=== PATIENT | male | born 1940 | race Hispanic/Latino ===

== ENCOUNTER 2017-12-17 09:54 | Outpatient (CLI) | payer MEDICARE ==
[2017-12-17 11:01] LABS: Albumin 4.4 g/dL (3.9-5); Calcium 9.5 mg/dL (8.4-10.2)
[2017-12-17 11:25] LABS: Creatinine,Urine 138.4 mg/dL (0.1-20.0); Protein/Creatinine Ratio,Urine 0.82
--- NOTE | 2017-12-17 14:15 | Ultrasound Report ---
ULTRASOUND RENAL BILATERAL HISTORY: Abnormal kidney function. TECHNIQUE: transabdominal ultrasound with color Doppler interrogation. FINDINGS: Scans of the kidneys show normal renal contours. There is normal central calyceal clustering and good preservation of the cortical thickness. There is no evidence of mass or hydronephrosis. The bladder is empty. IMPRESSION: Unremarkable renal ultrasound.
[2017-12-19 17:59] LABS: Myeloperoxidase Antibody <1.0 AI (<1.0)
[2017-12-20 22:56] LABS: Albumin 3.9 g/dL (3.8-4.8); Gamma Globulin 0.6 g/dL (0.8-1.7)
== END 2017-12-17 09:55 | disposition home or self-care (01) ==
LOC: US 09:54 → EDBD 09:54 → US 09:55
PROVIDERS: ATTEND Internal Medicine Nephrology
DX: I12.9 Hypertensive chronic kidney disease with stage 1 through stage 4 chronic kidney disease, or unspecified chronic kidney disease (principal); N18.9 Chronic kidney disease, unspecified; E11.22 Type 2 diabetes mellitus with diabetic chronic kidney disease; E87.5 Hyperkalemia; N40.0 Benign prostatic hyperplasia without lower urinary tract symptoms; R94.4 Abnormal results of kidney function studies; F17.200 Nicotine dependence, unspecified, uncomplicated
CPT/HCPCS: 36415; 76770; 80048; 82040; 82570; 84100; 84156; 84165; 86021; 86225

== ENCOUNTER 2017-12-28 10:58 | Outpatient (CLI) | payer MEDICARE ==
[2017-12-28 11:31] LABS: Albumin 4.1 g/dL (3.9-5); Calcium 9.4 mg/dL (8.4-10.2)
== END 2017-12-28 10:59 | disposition home or self-care (01) ==
LOC: LAB 10:58
PROVIDERS: ATTEND Internal Medicine Nephrology
DX: Z01.818 Encounter for other preprocedural examination (principal); I12.9 Hypertensive chronic kidney disease with stage 1 through stage 4 chronic kidney disease, or unspecified chronic kidney disease; N18.9 Chronic kidney disease, unspecified; E11.22 Type 2 diabetes mellitus with diabetic chronic kidney disease; E87.5 Hyperkalemia; N40.0 Benign prostatic hyperplasia without lower urinary tract symptoms; R94.4 Abnormal results of kidney function studies
CPT/HCPCS: 36415; 80048; 82040; 84100

== ENCOUNTER 2018-01-23 13:25 | Outpatient (CLI) | payer MEDICARE ==
[2018-01-23 14:03] LABS: Albumin 4.5 g/dL (3.9-5); Calcium 9.6 mg/dL (8.4-10.2)
== END 2018-01-23 13:26 | disposition home or self-care (01) ==
LOC: LAB 13:25
PROVIDERS: ATTEND Internal Medicine Nephrology
DX: I12.9 Hypertensive chronic kidney disease with stage 1 through stage 4 chronic kidney disease, or unspecified chronic kidney disease (principal); N18.9 Chronic kidney disease, unspecified; E11.22 Type 2 diabetes mellitus with diabetic chronic kidney disease; N40.0 Benign prostatic hyperplasia without lower urinary tract symptoms; R94.4 Abnormal results of kidney function studies; F17.200 Nicotine dependence, unspecified, uncomplicated
CPT/HCPCS: 36415; 80048; 82040; 84100

== ENCOUNTER 2019-05-20 06:42 | Inpatient (IN) | payer MEDICARE ==
--- NOTE | 2019-05-20 07:01 | Emergency Department Report ---
ED Neuro Deficit HPI - General Chief Complaint: Neuro Symptoms/Deficit Stated Complaint: SLURRED SPEECH, FACIAL DROOP, ALTERED MENTAL Source: patient, family Mode of arrival: Ambulatory Limitations: No Limitations - History of Present Illness Initial Comments: [facility] Date of Service: 05/20/2019 06:51:02 Impression: Altered mental status Metrics: Last Known Well: 05/19/2019 20:00:00 Start Time: 05/20/2019 06:50:17 Arrival Time: 05/20/2019 06:42:00 Stamp Time: 05/20/2019 06:51:02 Time First Login Attempt: 05/20/2019 06:52:42 Video Start Time: 05/20/2019 06:52:42 Symptoms: slurred speech and right sided weakness NIHSS Start Assessment Time: 05/20/2019 06:58:56 Patient is not a candidate for tPA. Patient was not deemed candidate for tPA thrombolytics because of Last Well Known above 4.[address] head was not reviewed. ER physician not notified of the decision on thrombolytics management. Comments: Confusion with worsening right leg weakness which seems to be baseline. Recommend metabolic work up would consider stroke less likely in the differential. Our recommendations are outlined below. Recommendations: Initiate Aspirin 81 MG Daily Recommended Scan: MRI Head Without Contrast Lipid Panel to Be Obtained, if Not Done in the Last Three Months Therapies: Physical Therapy, Occupational Therapy, Speech Therapy Assessment When Applicable Dysphaghia Screen: Swallow Evaluation, Bedside DVT prophylaxis: SCDs, Pneumatic Compression Disposition: Follow up with Teleneurology Follow up Sign Out: Discussed with Emergency Department Provider History of Present Illness: Patient is a 78 years old Male who presents with symptoms of slurred speech and right sided weakness 78 yo M with history of stroke, CAD, and dm who is presenting with slurred speech and right sided weakness. Per family patient has been confused that last few days. He was stumbling and slurring speech this morning. His last normal was 20:00. Stroke alert called for Triage presentations Examination: 1A: Level of Consciousness - Alert; keenly responsive + 0 1B: Ask Month and Age - Both Questions Right + 0 1C: Blink Eyes & Squeeze Hands - Performs Both Tasks + 0 2: Test Horizontal Extraocular Movements - Normal + 0 3: Test Visual Jamison - No Visual Loss + 0 4: Test Facial Palsy (Use Grimace if Obtunded) - Normal symmetry + 0 5A: Test Left Arm Motor Drift - No Drift for 10 Seconds + 0 5B: Test Right Arm Motor Drift - No Drift for 10 Seconds + 0 6A: Test Left Leg Motor Drift - No Drift for 5 Seconds + 0 6B: Test Right Leg Motor Drift - Some Effort Against [place] + 2 7: Test Limb Ataxia (FNF/Heel-Mcgrath) - No Ataxia + 0 8: Test Sensation - Mild-Moderate Loss: Less Sharp/More Dull + 1 9: Test Language/Aphasia - Normal; No aphasia + 0 10: Test Dysarthria - Normal + 0 11: Test Extinction/Inattention - No abnormality + 0 NIHSS Score: 3 Patient was informed the Neurology Consult would happen via TeleHealth consult by way of interactive audio and video telecommunications and consented to receiving care in this manner. Due to the immediate potential for life-threatening deterioration due to underlying acute neurologic illness, I spent 35 minutes providing critical care. This time includes time for face to face visit via telemedicine, review of medical records, imaging studies and discussion of findings with providers, the patient and/or family. Dr Izabela Alaniz [facility] - Related Data Home Medications: Home Medications Medication Instructions Recorded Confirmed Last Taken Aspirin [Aspirin TAB] 325 mg PO QDAY 03/29/16 03/29/16 Unknown Clopidogrel Bisulfate [Plavix] 75 mg PO DAILY 03/29/16 03/29/16 Unknown Metoprolol [Lopressor] 25 mg PO BID 03/29/16 03/29/16 Unknown Rosuvastatin (Nf) [Crestor] 0 mg PO QHS 03/29/16 03/29/16 Unknown glipiZIDE [Glucotrol] 10 mg PO BID 03/29/16 03/29/16 Unknown metFORMIN [Glucophage] 1,000 mg PO BID 03/29/16 03/29/16 Unknown Allergies/Adverse Reactions: Allergies Allergy/AdvReac Type Severity Reaction Status Date / Time KAYLIE Inhibitors AdvReac Unknown Verified 03/29/16 19:28 ED Review of Systems ROS: Stated complaint: SLURRED SPEECH, FACIAL DROOP, ALTERED MENTAL Other details as noted in HPI ED Past Medical Hx - Past Medical History Additional medical history: BPH - Surgical History Hx Coronary Stent: Yes Hx Open Heart Surgery: Yes Additional Surgical History: PROSTATE GLAND SURGERY - Social History Smoking Status: Current Every Day Smoker (one pack per day) Substance Use Type: None - Medications Home Medications: Home Medications Medication Instructions Recorded Confirmed Last Taken Type Aspirin [Aspirin TAB] 325 mg PO QDAY 03/29/16 03/29/16 Unknown History Clopidogrel Bisulfate [Plavix] 75 mg PO DAILY 03/29/16 03/29/16 Unknown History Metoprolol [Lopressor] 25 mg PO BID 03/29/16 03/29/16 Unknown History Rosuvastatin (Nf) [Crestor] 0 mg PO QHS 03/29/16 03/29/16 Unknown History glipiZIDE [Glucotrol] 10 mg PO BID 03/29/16 03/29/16 Unknown History metFORMIN [Glucophage] 1,000 mg PO BID 03/29/16 03/29/16 Unknown History ED Neuro Physical Exam - General Limitations: No Limitations Suspected Stroke: No Critical care attestation.: If time is entered above; I have spent that time in minutes in the direct care of this critically ill patient, excluding procedure time. ED Disposition Clinical Impression: Altered mental status, unspecified Disposition: 09 OP ADMIT IP TO THIS HOSP Is pt being admited?: Yes Condition: Stable
[2019-05-20] MEDS ORDERED: REGLAN IV ONE (07:12)
[2019-05-20] MEDS ORDERED: BENADRYL IV ONE (07:12)
--- NOTE | 2019-05-20 07:12 | Emergency Department Report ---
ED General Adult HPI - General Chief complaint: Neuro Symptoms/Deficit Stated complaint: SLURRED SPEECH, FACIAL DROOP, ALTERED MENTAL Time Seen by Provider: 05/20/19 06:57 Source: patient, family, RN notes reviewed, old records reviewed Mode of arrival: Ambulatory Limitations: Altered Mental Status, Physical Limitation - History of Present Illness Initial comments: This is a 78-year-old gentleman. The patient is not known to this provider previously. The patient has a history of diabetes and hypertension and high cholesterol. He may also have a history of renal insufficiency, question TIA/stroke in the past, and chronic right-sided hip pain. The patient is brought to the hospital by his son, Mr. Bigg queen; [phone]. History mostly obtained from the patient's son. Apparently, the patient's son saw the patient at 6:00 this morning, and thought that he was altered and not acting right. His last known well time was 8:00 last night. Apparently, no new medications, and no other symptoms. Patient initially denies symptoms to this provider. Then he complains of a headache. He states the headache is frontal. He is not able to describe the quality of the nature of his headache, onset of headache, radiation of headache, exacerbating or relieving factors. However, he denies additional symptoms. The patient's son indicates no fevers, vomiting, loss of consciousness, change in medications. The patient has chronic right-sided hip pain, and chronic decreased range of motion in the right lower extremity. As per review of old medications, patient takes glipizide nursing team has been tasked with reconciling patient's medications. Patient altered and therefore not able to describe exacerbating or relieving factors, qualitative nature of his symptoms, radiation. As per family, there is no trauma. -: unknown Quality: other Consistency: other Improves with: other Worsens with: other Associated Symptoms: other - Related Data Home Medications Medication Instructions Recorded Confirmed Last Taken Aspirin [Aspirin TAB] 325 mg PO QDAY 03/29/16 03/29/16 Unknown Clopidogrel Bisulfate [Plavix] 75 mg PO DAILY 03/29/16 03/29/16 Unknown Metoprolol [Lopressor] 25 mg PO BID 03/29/16 03/29/16 Unknown Rosuvastatin (Nf) [Crestor] 0 mg PO QHS 03/29/16 03/29/16 Unknown glipiZIDE [Glucotrol] 10 mg PO BID 03/29/16 03/29/16 Unknown metFORMIN [Glucophage] 1,000 mg PO BID 03/29/16 03/29/16 Unknown Allergies Allergy/AdvReac Type Severity Reaction Status Date / Time KAYLIE Inhibitors AdvReac Unknown Verified 03/29/16 19:28 ED Review of Systems ROS: Stated complaint: SLURRED SPEECH, FACIAL DROOP, ALTERED MENTAL Other details as noted in HPI Comment: per son Constitutional: malaise Eyes: denies: eye discharge ENT: denies: epistaxis Respiratory: denies: cough Cardiovascular: denies: syncope Gastrointestinal: denies: nausea, vomiting Genitourinary: denies: frequency Musculoskeletal: arthralgia (chronic, as per son, as per patient) Skin: denies: lesions Neurological: weakness, confusion ED Past Medical Hx - Past Medical History Additional medical history: BPH - Surgical History Hx Coronary Stent: Yes Hx Open Heart Surgery: Yes Additional Surgical History: PROSTATE GLAND SURGERY - Social History Smoking Status: Current Every Day Smoker (one pack per day) Substance Use Type: None - Medications Home Medications: Home Medications Medication Instructions Recorded Confirmed Last Taken Type Aspirin [Aspirin TAB] 325 mg PO QDAY 03/29/16 03/29/16 Unknown History Clopidogrel Bisulfate [Plavix] 75 mg PO DAILY 03/29/16 03/29/16 Unknown History Metoprolol [Lopressor] 25 mg PO BID 03/29/16 03/29/16 Unknown History Rosuvastatin (Nf) [Crestor] 0 mg PO QHS 03/29/16 03/29/16 Unknown History glipiZIDE [Glucotrol] 10 mg PO BID 03/29/16 03/29/16 Unknown History metFORMIN [Glucophage] 1,000 mg PO BID 03/29/16 03/29/16 Unknown History ED Physical Exam - General Limitations: Altered Mental Status General appearance: alert, in no apparent distress - Head Head exam: Present: atraumatic, normocephalic - Eye Eye exam: Present: normal appearance, EOMI, other (visual acuity intact to finger counting and color perception). Absent: nystagmus - ENT ENT exam: Present: normal exam, normal orophraynx, mucous membranes moist, normal external ear exam - Neck Neck exam: Present: normal inspection, full ROM. Absent: tenderness, meningismus - Respiratory Respiratory exam: Present: normal lung sounds bilaterally. Absent: respiratory distress - Cardiovascular Cardiovascular Exam: Present: regular rate, normal rhythm, normal heart sounds. Absent: bradycardia, tachycardia, irregular rhythm, systolic murmur, diastolic murmur, rubs, gallop - GI/Abdominal GI/Abdominal exam: Present: soft. Absent: distended, tenderness, guarding, rebound, rigid, pulsatile mass - Rectal Rectal exam: Present: deferred - Extremities Exam Extremities exam: Present: normal inspection, other (2+ pulses noted in the bilateral upper, lower extremities. Compartments soft. No long bony tenderness. The pelvis is stable.). Absent: full ROM (decreased range of motion in the right lower extremity this is chronic and secondary to chronic pain), calf tenderness - Back Exam Back exam: Present: normal inspection, full ROM. Absent: tenderness, CVA tenderness (R), CVA tenderness (L), paraspinal tenderness, vertebral tenderness - Neurological Exam Neurological exam: Present: alert, other (Extraocular movements intact. Tongue midline. No facial droop. Facial sensation intact to light touch in the V1, V2, V3 distribution bilaterally. 5 and 5 strength in 4 extremities.. Sensation is intact to light touch in 4 extremities.). Absent: motor sensory deficit - Psychiatric Psychiatric exam: Present: anxious, other (patient is alert to name and location. He believes that it is 2020) - Skin Skin exam: Present: warm, dry, intact, normal color. Absent: rash ED Course Vital Signs 05/20/19 05/20/19 05/20/19 06:45 07:09 07:16 Temperature 97.9 F Pulse Rate 60 65 60 Respiratory 12 16 20 Rate Blood Pressure 141/48 156/65 O2 Sat by Pulse 96 98 Oximetry 05/20/19 05/20/19 05/20/19 07:30 07:46 08:00 Temperature Pulse Rate 67 64 69 Respiratory 22 20 29 H Rate Blood Pressure 156/65 46/29 135/81 O2 Sat by Pulse 98 95 96 Oximetry 05/20/19 08:03 Temperature Pulse Rate Respiratory 19 Rate Blood Pressure O2 Sat by Pulse 99 Oximetry ED Medical Decision Making - Lab Data Result diagrams: 05/20/19 07:04 05/20/19 07:04 Vital Signs 07/30/19 07/30/19 07/30/19 06:45 07:09 07:16 Temperature 97.9 F Pulse Rate 60 65 60 Respiratory 12 16 20 Rate Blood Pressure 141/48 156/65 O2 Sat by Pulse 96 98 Oximetry 05/20/19 05/20/19 05/20/19 07:30 07:46 08:00 Temperature Pulse Rate 67 64 69 Respiratory 22 20 29 H Rate Blood Pressure 156/65 46/29 135/81 O2 Sat by Pulse 98 95 96 Oximetry 05/20/19 08:03 Temperature Pulse Rate Respiratory 19 Rate Blood Pressure O2 Sat by Pulse 99 Oximetry Lab Results 05/20/19 05/20/19 05/20/19 Range/Units 07:04 07:04 07:04 WBC 8.4 (4.5-11.0) K/mm3 RBC 4.60 (3.65-5.03) M/mm3 Hgb 13.5 (11.8-15.2) gm/dl Hct 40.2 (35.5-45.6) % MCV 87 (84-94) fl MCH 29 (28-32) pg MCHC 34 (32-34) % RDW 15.0 (13.2-15.2) % Plt Count 204 (140-440) K/mm3 Lymph % (Auto) 17.4 (13.4-35.0) % Davie % (Auto) 3.9 (0.0-7.3) % Eos % (Auto) 2.5 (0.0-4.3) % Baso % (Auto) 1.1 (0.0-1.8) % Lymph # 1.5 (1.2-5.4) K/mm3 Davie # 0.3 (0.0-0.8) K/mm3 Eos # 0.2 (0.0-0.4) K/mm3 Baso # 0.1 (0.0-0.1) K/mm3 Seg Neutrophils % 75.1 H (40.0-70.0) % Seg Neutrophils # 6.3 (1.8-7.7) K/mm3 PT 13.3 (12.2-14.9) Sec. INR 1.04 (0.87-1.13) APTT 26.5 (24.2-36.6) Sec. Thrombin Time 15.1 (15.1-19.6) Sec. Sodium 141 (137-145) mmol/L Potassium 4.9 (3.6-5.0) mmol/L Chloride 103.8 (98-107) mmol/L Carbon Dioxide 27 (22-30) mmol/L Anion Gap 15 mmol/L BUN 13 (9-20) mg/dL Creatinine 1.5 (0.8-1.5) mg/dL Estimated GFR 46 ml/min BUN/Creatinine Ratio 9 % Glucose 38 L* (75-100) mg/dL POC Glucose (70-105) Calcium 10.0 (8.4-10.2) mg/dL Magnesium (1.7-2.3) mg/dL Ammonia (25-60) umol/L Total Creatine Kinase (55-170) units/L Troponin T < 0.010 (0.00-0.029) ng/mL TSH (0.270-4.200) mlU/mL Salicylates (2.8-20.0) mg/dL Acetaminophen (10.0-30.0) ug/mL Plasma/Serum Alcohol (0-0.07) % 05/20/19 05/20/19 05/20/19 Range/Units 07:14 07:14 07:14 WBC (4.5-11.0) K/mm3 RBC (3.65-5.03) M/mm3 Hgb (11.8-15.2) gm/dl Hct (35.5-45.6) % MCV (84-94) fl MCH (28-32) pg MCHC (32-34) % RDW (13.2-15.2) % Plt Count (140-440) K/mm3 Lymph % (Auto) (13.4-35.0) % Davie % (Auto) (0.0-7.3) % Eos % (Auto) (0.0-4.3) % Baso % (Auto) (0.0-1.8) % Lymph # (1.2-5.4) K/mm3 Davie # (0.0-0.8) K/mm3 Eos # (0.0-0.4) K/mm3 Baso # (0.0-0.1) K/mm3 Seg Neutrophils % (40.0-70.0) % Seg Neutrophils # (1.8-7.7) K/mm3 PT (12.2-14.9) Sec. INR (0.87-1.13) APTT (24.2-36.6) Sec. Thrombin Time (15.1-19.6) Sec. Sodium (137-145) mmol/L Potassium (3.6-5.0) mmol/L Chloride (98-107) mmol/L Carbon Dioxide (22-30) mmol/L Anion Gap mmol/L BUN (9-20) mg/dL Creatinine (0.8-1.5) mg/dL Estimated GFR ml/min BUN/Creatinine Ratio % Glucose (75-100) mg/dL POC Glucose (70-105) Calcium (8.4-10.2) mg/dL Magnesium 1.70 (1.7-2.3) mg/dL Ammonia 20.0 L (25-60) umol/L Total Creatine Kinase 33 L (55-170) units/L Troponin T (0.00-0.029) ng/mL TSH 1.530 (0.270-4.200) mlU/mL Salicylates (2.8-20.0) mg/dL Acetaminophen (10.0-30.0) ug/mL Plasma/Serum Alcohol (0-0.07) % 05/20/19 05/20/19 05/20/19 Range/Units 07:14 07:14 07:14 WBC (4.5-11.0) K/mm3 RBC (3.65-5.03) M/mm3 Hgb (11.8-15.2) gm/dl Hct (35.5-45.6) % MCV (84-94) fl MCH (28-32) pg MCHC (32-34) % RDW (13.2-15.2) % Plt Count (140-440) K/mm3 Lymph % (Auto) (13.4-35.0) % Davie % (Auto) (0.0-7.3) % Eos % (Auto) (0.0-4.3) % Baso % (Auto) (0.0-1.8) % Lymph # (1.2-5.4) K/mm3 Davie # (0.0-0.8) K/mm3 Eos # (0.0-0.4) K/mm3 Baso # (0.0-0.1) K/mm3 Seg Neutrophils % (40.0-70.0) % Seg Neutrophils # (1.8-7.7) K/mm3 PT (12.2-14.9) Sec. INR (0.87-1.13) APTT (24.2-36.6) Sec. Thrombin Time (15.1-19.6) Sec. Sodium (137-145) mmol/L Potassium (3.6-5.0) mmol/L Chloride (98-107) mmol/L Carbon Dioxide (22-30) mmol/L Anion Gap mmol/L BUN (9-20) mg/dL Creatinine (0.8-1.5) mg/dL Estimated GFR ml/min BUN/Creatinine Ratio % Glucose (75-100) mg/dL POC Glucose (70-105) Calcium (8.4-10.2) mg/dL Magnesium (1.7-2.3) mg/dL Ammonia (25-60) umol/L Total Creatine Kinase (55-170) units/L Troponin T (0.00-0.029) ng/mL TSH (0.270-4.200) mlU/mL Salicylates 1.2 L (2.8-20.0) mg/dL Acetaminophen < 5.0 L (10.0-30.0) ug/mL Plasma/Serum Alcohol < 0.01 (0-0.07) % 05/20/19 Range/Units 08:27 WBC (4.5-11.0) K/mm3 RBC (3.65-5.03) M/mm3 Hgb (11.8-15.2) gm/dl Hct (35.5-45.6) % MCV (84-94) fl MCH (28-32) pg MCHC (32-34) % RDW (13.2-15.2) % Plt Count (140-440) K/mm3 Lymph % (Auto) (13.4-35.0) % Davie % (Auto) (0.0-7.3) % Eos % (Auto) (0.0-4.3) % Baso % (Auto) (0.0-1.8) % Lymph # (1.2-5.4) K/mm3 Davie # (0.0-0.8) K/mm3 Eos # (0.0-0.4) K/mm3 Baso # (0.0-0.1) K/mm3 Seg Neutrophils % (40.0-70.0) % Seg Neutrophils # (1.8-7.7) K/mm3 PT (12.2-14.9) Sec. INR (0.87-1.13) APTT (24.2-36.6) Sec. Thrombin Time (15.1-19.6) Sec. Sodium (137-145) mmol/L Potassium (3.6-5.0) mmol/L Chloride (98-107) mmol/L Carbon Dioxide (22-30) mmol/L Anion Gap mmol/L BUN (9-20) mg/dL Creatinine (0.8-1.5) mg/dL Estimated GFR ml/min BUN/Creatinine Ratio % Glucose (75-100) mg/dL POC Glucose 138 H (70-105) Calcium (8.4-10.2) mg/dL Magnesium (1.7-2.3) mg/dL Ammonia (25-60) umol/L Total Creatine Kinase (55-170) units/L Troponin T (0.00-0.029) ng/mL TSH (0.270-4.200) mlU/mL Salicylates (2.8-20.0) mg/dL Acetaminophen (10.0-30.0) ug/mL Plasma/Serum Alcohol (0-0.07) % - EKG Data -: EKG Interpreted by Wy EKG shows normal: sinus rhythm Rate: normal - EKG Data 05/20/19 08:28 EKG shows a sinus rhythm, 65 beats per minute, borderline leftward axis deviation, low voltage in the lateral leads, Q waves noted in the inferior leads, EKG is abnormal, EKG is not consistent with ST elevation myocardial infarction - Radiology Data Radiology results: report reviewed, image reviewed Noncontrast CT scan of the brain is negative for acute disease. Chronic findings noted. X-ray the chest is negative for acute disease. - Medical Decision Making Differential diagnosis, including not limited to: TIA, stroke, pneumonia, thyroid derangement, electrolyte derangement, urinary tract infection, medication related hypoglycemia Assessment and plan: 78-year-old gentleman who presents with altered mental status and reported unsteady gait, last known well time is 8:00 last night. Patient presents with wake-up symptoms, and is therefore not a TPA candidate. His physical exam is unremarkable, except as noted, and not suggestive of large vessel occlusion. Laboratory studies mostly unremarkable, with the exception of hypoglycemia. Patient's medications in 2016 demonstrate glipizide, which they contributing factor for hypoglycemia. Nursing team has been instructed to reconcile patient's current medications. Patient will be placed on dextrose, given oral food, and given close monitoring. The patient is seen in conjunction with stroke neurology, Dr. Jimmie Alaniz, who agrees that patient is not a TPA candidate, and that his exam is not consistent with a large vessel occlusion. Suspect hypoglycemia is likely etiologic agent. Urinalysis is pending at this time. Case is presented to the Hospital physician, Dr. Chwo, who has accepted the patient to the medical service for further evaluation and management. We will defer to the inpatient team to follow-up on the patient's urinalysis. Critical care attestation.: If time is entered above; I have spent that time in minutes in the direct care of this critically ill patient, excluding procedure time. ED Disposition Clinical Impression: Altered mental status, unspecified, Hypoglycemic encephalopathy Disposition: OP ADMIT IP TO THIS HOSP Is pt being admited?: Yes Does the pt Need Aspirin: Yes Condition: Fair
[2019-05-20 07:27] LABS: Basophils # (Auto) 0.1 K/mm3 (0.0-0.1); Basophils % (Auto) 1.1 % (0.0-1.8); Eosinophils # (Auto) 0.2 K/mm3 (0.0-0.4); Eosinophils % (Auto) 2.5 % (0.0-4.3); Hematocrit 40.2 % (35.5-45.6); Hemoglobin 13.5 gm/dl (11.8-15.2); Lymphocytes # (Auto) 1.5 K/mm3 (1.2-5.4); Lymphocytes % (Auto) 17.4 % (13.4-35.0); Mean Corpuscular HGB Conc 34 % (32-34); Mean Corpuscular Volume 87 fl (84-94); Monocytes # (Auto) 0.3 K/mm3 (0.0-0.8); Monocytes % (Auto) 3.9 % (0.0-7.3); Platelet Count 204 K/mm3 (140-440)
--- NOTE | 2019-05-20 07:27 | Cat Scan Report ---
CT head/brain wo con INDICATION / CLINICAL INFORMATION: neuro deficits <6hrs or sx present upon awakening. TECHNIQUE: All CT scans at this location are performed using CT dose reduction for ALARA by means of automated e xposure control. COMPARISON: None available. FINDINGS: Ventricle size is increased and there is deepening of cortical sulci consistent with cerebral atrophy . There is an old right MCA infarct present. No mass or mass effect is seen. There is no evidence of intracranial hemorrhage. No large new area of infarction is identified. The paranasal sinuses are loraine ar. IMPRESSION: 1. Old right MCA infarct 2. Cerebral atrophy 3. No acute findings This is a code stroke patient. These results were called to emergency room at 0620 hours Signer Name: Joseph Calhoun MD FACR Signed: 05/20/2019 7:22 AM Workstation Name: [id number]
[2019-05-20 07:38] LABS: INR 1.04 (0.87-1.13)
[2019-05-20 07:39] LABS: Partial Thromboplastin Time 26.5 Sec. (24.2-36.6); Thrombin Time 15.1 Sec. (15.1-19.6)
[2019-05-20 07:43] LABS: BUN/Creatinine Ratio 9; Blood Urea Nitrogen 13 mg/dL (9-20); Hemolysis Index 0
[2019-05-20] MEDS ORDERED: D50W (25GM) Syringe IV ONE ×2 (07:55→07:56)
--- NOTE | 2019-05-20 08:05 | XRay Report ---
CHEST 1 VIEW INDICATION: Altered mental status, slurred speech. COMPARISON: None FINDINGS: Support devices: None. Heart: Heart size is normal. Previous CABG changes are noted. Lungs/Pleura: The lungs are generally clear. Bronchovascular markings in both lower lobes are slightl y prominent. No convincing pneumonia, pleural fluid or pneumothorax. Additional findings: None. IMPRESSION: No acute findings. Signer Name: Phoenix Issa Jr, MD Signed: 05/20/2019 8:01 AM Workstation Name: [id number]
[2019-05-20] MEDS ORDERED: BABY ASPIRIN PO ONE (08:32)
[2019-05-20] MEDS ORDERED: D5/0.45NS 1,000 ML IV SCH (09:00)
[2019-05-20] MEDS ORDERED: D5/0.45NS 1,000 ML IV ONE (10:57)
--- NOTE | 2019-05-20 13:09 | History and Physical Report ---
History of Present Illness Date of examination: 05/20/19 Date of admission: 05/20/19 08:32 Chief complaint: AMS History of present illness: Patient is a 78 yo man with a history of tobacco dependency, BPH s/p surgery, CVA with right sided deficits, NIDDM type 2, cataracts, CAD s/p CABG x 2, s/p Cardiac stents x 2, dyslipidemia and hypertension who presented to [facility] with AMS, confusion, slurred speech and stumbling gait that started this morning around 6am, observed by son, Bigg (whom he lives with). He was last known to be well at 8pm the previous night. Patient was found to blood glucose of 38 on basic metabolic panel. His speech is improving. He did have a mild intermittent frontal headache. He takes metformin and glipizide twice daily. He ate lasagne late night then took his diabetic medications. This morning he took his metformin and glipizide without eating right away as he typically does. Son states his symptoms were present prior to him taking the glipizide. PMH: as hpi, ckd 3 also PSH: right THR, right inguinal hernia repair, CABG, [facility] s/p stent, bph surgey SH: 1ppd tobacco/no etoh abuse/no drug abuse FH: mother breast cancer, both parents of cancer ROS: Constitutional: denies: fever ENT: denies: throat or neck pain Respiratory: denies: cough, shortness of breath Cardiovascular: denies: chest pain Endocrine: denies unexplained weight loss or gain Gastrointestinal: denies: abdominal pain, nausea Genitourinary: denies: dysuria Rectal: denies no incontinence, no bleeding, no itching, no discharge Musculoskeletal: denies swelling, myaglia, muscle weakness Skin: denies: rash Neurological: + headache Hematological/Lymphatic: denies: easy bleeding or easy bruising Allergic/Immunologic: no urticaria, no allergic rhinitis, no anaphylaxis Psych: denies sadness or hopelessness, SI/HI Medications and Allergies Allergies Allergy/AdvReac Type Severity Reaction Status Date / Time KAYLIE Inhibitors AdvReac Unknown Verified 03/29/16 19:28 Home Medications Medication Instructions Recorded Confirmed Last Taken Type Aspirin [Aspirin TAB] 325 mg PO QDAY 03/29/16 05/20/19 Unknown History Clopidogrel Bisulfate [Plavix] 75 mg PO DAILY 03/29/16 05/20/19 Unknown History Metoprolol [Lopressor] 25 mg PO BID 03/29/16 05/20/19 Unknown History Rosuvastatin (Nf) [Crestor] 0 mg PO QHS 03/29/16 05/20/19 Unknown History glipiZIDE [Glucotrol] 10 mg PO BID 03/29/16 05/20/19 Unknown History metFORMIN [Glucophage] 1,000 mg PO BID 03/29/16 05/20/19 Unknown History Active Meds: Active Medications Dextrose/Sodium Chloride (D5/0.45ns) 1,000 mls @ 100 mls/hr IV DIRECT BENJY Exam - Physical Exam Narrative exam: Gen: WDWN, NAD, Awake, Alert, Orientated x 3 HEENT: NCAT, EOMI, PERRL, OP Clear Neck: supple, no adenopathy, no thyromegaly, no JVD CVS/Heart: RRR, normal S1S2, pulses present bilaterally Chest/Lungs: CTA B, Symmetrical chest expansion, good air entry bilaterally GI/Abdomen: soft, NTND, good bowel sounds, no guarding or rebound /Bladder: no suprapubic tenderness, no CVA or paraspinal tenderness Extermity/Skin: no c/c/e, no obvious rash MSK: FROM x 4 Neuro: CN 2-12 grossly intact except speech, old right upper extremity weakness, no new focal deficits Psych: calm - Constitutional Vitals: Temp Pulse Resp BP Pulse Ox 97.9 F 61 19 121/56 98 05/20/19 06:45 05/20/19 11:00 05/20/19 11:00 05/20/19 11:00 05/20/19 11:00 Results - Labs CBC & Chem 7: 05/20/19 07:04 05/20/19 07:04 Labs: Abnormal lab results 05/20/19 05/20/19 05/20/19 Range/Units 07:04 07:04 07:14 Seg Neutrophils % 75.1 H (40.0-70.0) % Glucose 38 L* (75-100) mg/dL POC Glucose (70-105) Ammonia (25-60) umol/L Total Creatine Kinase 33 L (55-170) units/L Salicylates (2.8-20.0) mg/dL Acetaminophen (10.0-30.0) ug/mL 05/20/19 05/20/19 05/20/19 Range/Units 07:14 07:14 07:14 Seg Neutrophils % (40.0-70.0) % Glucose (75-100) mg/dL POC Glucose (70-105) Ammonia 20.0 L (25-60) umol/L Total Creatine Kinase (55-170) units/L Salicylates 1.2 L (2.8-20.0) mg/dL Acetaminophen < 5.0 L (10.0-30.0) ug/mL 05/20/19 Range/Units 08:27 Seg Neutrophils % (40.0-70.0) % Glucose (75-100) mg/dL POC Glucose 138 H (70-105) Ammonia (25-60) umol/L Total Creatine Kinase (55-170) units/L Salicylates (2.8-20.0) mg/dL Acetaminophen (10.0-30.0) ug/mL Assessment and Plan Patient is a 78 yo man with a history of tobacco dependency, BPH s/p surgery, CVA with right sided deficits, NIDDM type 2, cataracts, CAD s/p CABG, s/p Cardiac stents x 2, dyslipidemia and hypertension who presented to [facility] with AMS, confusion, slurred speech and stumbling gait that started this morning around 6am, observed by son, Bigg (whom he lives with). He was last known to be well at 8pm the previous night. Patient was found to blood glucose of 38 on basic metabolic panel. His speech is improving. He did have a mild intermittent frontal headache. He takes metformin and glipizide twice daily. He ate lasagne late night then took his diabetic medications. This morning he took his metformin and glipizide without eating right away as he typically does. Son states that patient's symptoms started prior to taking the glipizide. 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
[2019-05-20] MEDS ORDERED: ZOFRAN IV PRN (13:12)
[2019-05-20] MEDS ORDERED: TYLENOL PO PRN (13:12)
[2019-05-20] MEDS ORDERED: SODIUM CHLORIDE FLUSH SYRINGE 10 ML IV PRN (13:12)
[2019-05-20] MEDS ORDERED: D50W (25GM) Syringe IV PRN (13:49)
[2019-05-20] MEDS: D50W (25GM) Syringe IV PRN ×2 (13:58→19:25)
[2019-05-20] MEDS: PLAVIX PO SCH (14:05)
[2019-05-20 15:42] LABS: Bilirubin,Urine NEG (Negative); Blood,Urine SM (Negative); Color,Urine Yellow (Yellow); Mucus,Urine FEW /HPF; Urobilinogen,Urine < 2.0 mg/dL (<2.0)
[2019-05-20] MEDS: HumaLOG SUB-Q SCH ×2 (17:49→21:58)
--- NOTE | 2019-05-20 18:54 | Consultation ---
History of Present Illness Consult date: 05/20/19 Requesting physician: MARIAELENA OSMAN Reason for Consult: altered mental status Chief complaint: altered mental status, slurred speech, right side weakness History of present illness: This 78 year old right handed white male was noted this morning by son (per Dr. Chow) to be slurring after having glipizide but not having had breakfast. He had weakness of right side too, all lasting 3 hours per pt (as told him by son). He did not have numbness or tingling. He has some baseline slurring from prior stroke and recalls it was worse today but is now back to baseline he says. Has been on the glipizide and metformin for a long time. CT shows large old right MCA infarct. Takes 325 mg aspirin and 75 mg Plavix at home and Crestor generic is listed but not the amount. PMH: Medical: DM, MIs with 2 stents, CVA several years ago affecting left side. Surgeries: two different triple CABGs, prostate surgery for BPH, right hip replacement SH: 1 ppd cigs, no ETOH but used in past, no illicit but 25 years ago used MJ and heroin and cocaine. , 3 sons and 7 grandchildren alive and well. 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 FH: neg for CVA, hypertension, DM or epilepsy. ROS: frontal headache with nausea and photophobia. Visual spots if stands up quickly even without headache and then is dizzy. Snoring but no pauses mentioned, some napping and dozing off but not sleepy driving. No memory problems or paresthesias. General Physical Exam: General appearance: well developed well nourished mid 70's white male in NAD. HEENT: intact. Neck: supple, no bruits. Heart: no murmur or extra sounds. Extremities: 2+ left DP pulse, no edema. Can't feel right pulses. Neurological Exam: Mental Status: awake, alert, oriented X 3, gets 2 of 3 objects at 3 min. Names Pres but not TELEMARKETER. Slow calcs with at least one error but gets 5+7=12. Abstracts and names well, no right-left confusion. Slurs speech at times, cathleen with tongue twisters and [employer]. Cranial nerves: owens full, no papilledema on the right, (+) SVPs right, can't see left fundus due to cataract. PERRLA, EOMs full without nystagmus, sensory intact, no facial weakness, Rodriguez midline, gags negative. Shrugs are 5, tongue midline. Cerebellar: finger to nose off target left without tremor, heel to gar intact X 2. Sensory: decreased pinprick below knees. DSS and other primary modalities intact. Motor UEs: no drift or pronation, slower left Khanh. Motor LEs: no leg lag; IPs, anterior tibials and gastrocs are 5. Quads are 4+ right with hip pain and 5 left. Khanh are normal. Reflexes: palmomental positive right and strongly positive left, jaw jerk and snout are negative. Triceps are 1+, biceps 1+ right and 2 left, brachioradialis are trace. Rhiannon's are negative. Knee jerks are 1 right and trace left, ankle jerks are 0 bilaterally becoming trace right and remaining 0 left with reinforcement and without clonus. Toes are slightly upgoing right and downoing left to Babinski testing. Medications and Allergies Allergies Allergy/AdvReac Type Severity Reaction Status Date / Time KAYLIE Inhibitors AdvReac Unknown Verified 03/29/16 19:28 Home Medications Medication Instructions Recorded Confirmed Last Taken Type Aspirin [Aspirin TAB] 325 mg PO QDAY 03/29/16 05/20/19 Unknown History Clopidogrel Bisulfate [Plavix] 75 mg PO DAILY 03/29/16 05/20/19 Unknown History Metoprolol [Lopressor] 25 mg PO BID 03/29/16 05/20/19 Unknown History Rosuvastatin (Nf) [Crestor] 0 mg PO QHS 03/29/16 05/20/19 Unknown History glipiZIDE [Glucotrol] 10 mg PO BID 03/29/16 05/20/19 Unknown History metFORMIN [Glucophage] 1,000 mg PO BID 03/29/16 05/20/19 Unknown History Active Meds: Active Medications Acetaminophen (Tylenol) 650 mg PO Q4H PRN PRN Reason: Pain, Mild (1-3) Aspirin (Aspirin) 325 mg PO QDAY BENJY Atorvastatin Calcium (Lipitor) 80 mg PO QHS [facility] Clopidogrel Bisulfate (Plavix) 75 mg PO DAILY [facility] Last Admin: 05/20/19 14:05 Dose: 75 mg Documented by: Dextrose (D50w (25gm) Syringe) 50 ml IV PRN PRN PRN Reason: Hypoglycemia Last Admin: 05/20/19 13:58 Dose: 50 ml Documented by: Dextrose (D50w (25gm) Syringe) 50 ml IV PRN PRN PRN Reason: Hypoglycemia Famotidine (Pepcid) 10 mg PO BID [facility] Dextrose/Sodium Chloride (D5/0.45ns) 1,000 mls @ 100 mls/hr IV DIRECT BENJY Insulin Human Lispro (Humalog) 0 unit SUB-Q ACHS BENJY; Protocol Last Admin: 05/20/19 17:49 Dose: 1 unit Documented by: Metoprolol Tartrate (Lopressor) 25 mg PO BID [facility] Ondansetron HCl (Zofran) 4 mg IV Q8H PRN PRN Reason: Nausea And Vomiting Sodium Chloride (Sodium Chloride Flush Syringe 10 Ml) 10 ml IV PRN PRN PRN Reason: LINE FLUSH Physical Examination - Vital Signs Vital Signs: Vital Signs Temp Pulse Resp BP Pulse Ox 97.9 F 60 12 141/48 96 05/20/19 06:45 05/20/19 06:45 05/20/19 06:45 05/20/19 06:45 05/20/19 06:45 Results - Laboratory Findings CBC and BMP: 05/20/19 07:04 05/20/19 14:51 Abnormal Lab Findings: Abnormal Labs 05/20/19 05/20/19 05/20/19 07:04 07:04 07:14 Seg Neutrophils % 75.1 H Glucose 38 L* POC Glucose Ammonia Total Creatine Kinase 33 L Salicylates Acetaminophen 05/20/19 05/20/19 05/20/19 07:14 07:14 07:14 Seg Neutrophils % Glucose POC Glucose Ammonia 20.0 L Total Creatine Kinase Salicylates 1.2 L Acetaminophen < 5.0 L 05/20/19 05/20/19 05/20/19 08:27 13:48 14:16 Seg Neutrophils % Glucose POC Glucose 138 H < 40 L 138 H Ammonia Total Creatine Kinase Salicylates Acetaminophen 05/20/19 14:51 Seg Neutrophils % Glucose 202 H POC Glucose Ammonia Total Creatine Kinase Salicylates Acetaminophen Assessment and Plan Impression: 1. Transient ischemic attack 2. Hypoglycemia 3. Embolic old stroke 4. Orthostatic dizziness (by history) Plan: 1. MRI noncontrast with MRAs of head and neck without dye also. 2. Taught him calf tensing maneuvers for orthostasis. 3. Echo pending, with bubbles. 4. May need 30 event monitoring as outpatient. 5. Low blood glucose could cause focal temporary symptoms. 6. Lipid panel ordered by Dr. Chow. 50 min spent including review of multiple CT images. Thanks for an interesting consultation on this pleasant mid 70's male. Signing off, call for any unusual MRI or MRA or echo findings.
[2019-05-20] MEDS: LOPRESSOR PO SCH (21:57)
[2019-05-20] MEDS: PEPCID PO SCH (21:57)
[2019-05-21 06:11] LABS: Chol/HDL Ratio 1.81 %
[2019-05-21] MEDS: HumaLOG SUB-Q SCH ×4 (08:26→22:41)
[2019-05-21] MEDS: PEPCID PO SCH ×3 (08:26→22:40)
[2019-05-21] MEDS: LOPRESSOR PO SCH ×3 (08:26→22:41)
[2019-05-21] MEDS: PLAVIX PO SCH ×2 (08:26→10:48)
[2019-05-21] MEDS: ASPIRIN PO SCH ×2 (08:29→10:48)
--- NOTE | 2019-05-21 12:31 | Vascular Lab Report ---
BILATERAL CAROTID DOPPLER ULTRASOUND INDICATION : stroke TECHNIQUE: Grayscale and color Doppler imaging performed through the neck. COMPARISON: None FINDINGS: Right: There is moderate to severe irregular calcific plaque in the right carotid bulb extending to the proximal right ICA.. Peak systolic velocity in the CCA is 132 cm/s with end-diastolic velocity o f 11 cm/s. Peak systolic velocity in the right carotid bulb is 261 cm/s with end-diastolic velocity o f 28 cm/s. This correlates with greater than 75% stenosis in the right carotid bulb. Peak systolic ve locity in the proximal ICA is 150 cm/s with end-diastolic velocity of 22 cm/s. This correlates with 5 0-79% stenosis in the proximal right ICA. ICA to CCA ratio is less than 2. There is antegrade flow i n the ECA and the vertebral artery. Left: There is mild smooth intimal thickening in the distal CCA and carotid bulb.. Peak systolic [place] in the CCA is 72 cm/s with end-diastolic velocity of 11 cm/s. Peak systolic velocity in the prox imal ICA is 125 cm/s with end-diastolic velocity of 31 cm/s. ICA to CCA ratio is less than 2. There i s antegrade flow in the ECA and the vertebral artery. IMPRESSION: Greater than 75% stenosis in the right carotid bulb by NASCET criteria. 50-79% stenosis in the proximal right ICA by NASCET criteria. No hemodynamically significant stenosis on the left side. Signer Name: Phoenix Issa Jr, MD Signed: 05/21/2019 12:27 PM Workstation Name: [id number]
--- NOTE | 2019-05-21 13:32 | Magnetic Resonance Report ---
MRI BRAIN WITHOUT CONTRAST, MRA HEAD WITHOUT CONTRAST, MRA NECK WITHOUT CONTRAST INDICATION / CLINICAL INFORMATION: TIA. TECHNIQUE: Multiplanar, multi sequential MRI images of the brain. Routine MRA of the head and routine MRA of th e neck are performed. 3-D/MIP reformats postprocessed. Percentage stenosis is determined by direct qu antitative measurements of distal internal carotid artery diameter compared with normal reference seg ments or by criteria similar to NASCET where applicable. COMPARISON: Head CT on 05/20/2019. FINDINGS: MR BRAIN: BRAIN / INTRACRANIAL CONTENTS: No acute ischemia, acute hemorrhage, mass effect, midline shift, or hy drocephalus. Chronic infarct in the right MCA territory involving the right superior temporal lobe, r ight frontal lobe, and right parietal lobe. Moderate chronic microangiopathic change in the cerebral white matter. Age commensurate ventricular and cisternal prominence. CRANIOCERVICAL JUNCTION: No significant abnormality. ORBITS: No significant abnormality of visualized orbits. SINUSES / MASTOIDS: No significant abnormality of visualized sinuses and mastoid air cells. ADDITIONAL FINDINGS: None. MRA HEAD: Intracranial vertebral arteries: No significant abnormality. Basilar artery: No significant abnormality. Posterior cerebral arteries: No significant abnormality. Intracranial internal carotid arteries: No significant abnormality. Anterior cerebral arteries: No significant abnormality. Middle cerebral arteries: The right M1 segment is completely occluded, likely on a chronic basis. The re is no additional flow limiting stenosis or large vessel occlusion in the other intercranial vessel s. There is mild narrowing of the bilateral cavernous ICAs. Additional findings: None. MRA NECK: Aortic arch: No significant abnormality. Cervical vertebral arteries: No significant abnormality. Common carotid arteries: No significant abnormality. Cervical internal carotid arteries: There is a moderate stenosis of about 50-60% of the proximal righ t cervical ICA. There is minimal stenosis of the proximal left cervical ICA. Additional findings: None. IMPRESSION: 1. No acute infarct. Stable chronic infarct in the right MCA territory. 2. Approximately 60% stenosis of the proximal right cervical ICA. 3. Mild nonflow-limiting stenosis of the left cervical ICA. 4. Complete occlusion of the right MCA M1 segment intracranially. No additional flow-limiting stenosi s or large vessel occlusion intracranially. Signer Name: Dada Alarcon MD Signed: 05/21/2019 1:27 PM Workstation Name: [id number]
--- NOTE | 2019-05-21 15:19 | Progress Note ---
Assessment and Plan Assessment and plan: Patient is a 78 yo man with a history of tobacco dependency, BPH s/p surgery, CVA with right sided deficits, NIDDM type 2, cataracts, CAD s/p CABG, s/p Cardiac stents x 2, dyslipidemia and hypertension who presented to [facility] ED with AMS, confusion, slurred speech and stumbling gait that started this morning around 6am, observed by son, Bigg (whom he lives with). He was last known to be well at 8pm the previous night. Patient was found to blood glucose of 38 on basic metabolic panel. His speech is improving. He did have a mild intermittent frontal headache. He takes metformin and glipizide twice daily. He ate lasagne late night then took his diabetic medications. This morning he took his metformi n and glipizide without eating right away as he typically does. Son states that patient's symptoms started prior to taking the glipizide. * MRA neck wo contrast IMPRESSION: 1. No acute infarct. Stable chronic infarct in the right MCA territory. 2. Approximately 60% stenosis of the proximal right cervical ICA. 3. Mild nonflow-limiting stenosis of the left cervical ICA. 4. Complete occlusion of the right MCA M1 segment intracranially. No additional flow-limiting stenosis or large vessel occlusion intracranially. * MRA/MRI brain wo contrast IMPRESSION: 1. No acute infarct. Stable chronic infarct in the right MCA territory. 2. Approximately 60% stenosis of the proximal right cervical ICA. 3. Mild nonflow-limiting stenosis of the left cervical ICA. 4. Complete occlusion of the right MCA M1 segment intracranially. No additional flow-limiting stenosis or large vessel occlusion intracranially. * Carotid Ultrasound Doppler Bilateral IMPRESSION: Greater than 75% stenosis in the right carotid bulb by NASCET criteria. 50-79% stenosis in the proximal right ICA by NASCET criteria. No hemodynamically significant stenosis on the left side. AMS due to Acute metabolic encephalopathy from hypoglycemia, ruled out CVA: get mri, lipid, carotid, echo, treat with asa/statin TIA with Right Internal Carotid Stenosis: consulted Vascular surgery, treat with antiplt and statin Acute hypoglycemia: treat with dextrose, stop glipizide Type 2 DM with complication for hypoglycemia: check a1c=>6.9, continue ADA, ssi Tobacco dependency: credit support counselor on stopping, add nicotine patch Dyslipidemia: continue statin CAD s/p stent h/o: continue plavix Hypertension; continue lopressor and low salt diet DVT prophylaxis: sq heparin Disposition: inpatient care, consult Vascular surgery and ECHO pending I called [phone] and d/w son Bigg (per his request to be called with results-i saw he at bedside this morning) History Interval history: Patient was seen and examined. Follow-up on current diagnosis of AMS. No overnight events reported to me. Patient denies any chest pain, shortness breath, nausea/vomiting or severe headaches. Imaging, nursing note, chart, labs and old chart reviewed. Discussed with patient. Hospitalist Physical - Physical exam Narrative exam: Gen: WDWN, NAD, Awake, Alert, Orientated x 3 HEENT: NCAT, EOMI, PERRL, OP Clear Neck: supple, no adenopathy, no thyromegaly, no JVD CVS/Heart: RRR, normal S1S2, pulses present bilaterally Chest/Lungs: CTA B, Symmetrical chest expansion, good air entry bilaterally GI/Abdomen: soft, NTND, good bowel sounds, no guarding or rebound /Bladder: no suprapubic tenderness, no CVA or paraspinal tenderness Extermity/Skin: no c/c/e, no obvious rash MSK: FROM x 4 Neuro: CN 2-12 grossly intact except speech, old right upper extremity weakness, no new focal deficits Psych: calm - Constitutional Vitals: Temp Pulse Resp BP Pulse Ox 97.4 F L 70 18 131/96 98 05/21/19 13:20 05/21/19 13:20 05/21/19 13:20 05/21/19 13:20 05/21/19 13:20 Results - Labs CBC & Chem 7: 05/20/19 07:04 05/20/19 14:51 Labs: Laboratory Last Values WBC 8.4 K/mm3 (4.5-11.0) 05/20/19 07:04 RBC 4.60 M/mm3 (3.65-5.03) 05/20/19 07:04 Hgb 13.5 gm/dl (11.8-15.2) 05/20/19 07:04 Hct 40.2 % (35.5-45.6) 05/20/19 07:04 MCV 87 fl (84-94) 05/20/19 07:04 MCH 29 pg (28-32) 05/20/19 07:04 MCHC 34 % (32-34) 05/20/19 07:04 RDW 15.0 % (13.2-15.2) 05/20/19 07:04 Plt Count 204 K/mm3 (140-440) 05/20/19 07:04 Lymph % (Auto) 17.4 % (13.4-35.0) 05/20/19 07:04 Garrett % (Auto) 3.9 % (0.0-7.3) 05/20/19 07:04 Eos % (Auto) 2.5 % (0.0-4.3) 05/20/19 07:04 Baso % (Auto) 1.1 % (0.0-1.8) 05/20/19 07:04 Lymph # 1.5 K/mm3 (1.2-5.4) 05/20/19 07:04 Garrett # 0.3 K/mm3 (0.0-0.8) 05/20/19 07:04 Eos # 0.2 K/mm3 (0.0-0.4) 05/20/19 07:04 Baso # 0.1 K/mm3 (0.0-0.1) 05/20/19 07:04 Seg Neutrophils % 75.1 % (40.0-70.0) H 05/20/19 07:04 Seg Neutrophils # 6.3 K/mm3 (1.8-7.7) 05/20/19 07:04 PT 13.3 Sec. (12.2-14.9) 05/20/19 07:04 INR 1.04 (0.87-1.13) 05/20/19 07:04 APTT 26.5 Sec. (24.2-36.6) 05/20/19 07:04 15.1 Sec. (15.1-19.6) 05/20/19 07:04 Sodium 141 mmol/L (137-145) 05/20/19 07:04 Potassium 4.9 mmol/L (3.6-5.0) 05/20/19 07:04 Chloride 103.8 mmol/L (98-107) 05/20/19 07:04 Carbon Dioxide 27 mmol/L (22-30) 05/20/19 07:04 15 mmol/L 07/30/19 07:04 BUN 13 mg/dL (9-20) 05/20/19 07:04 1.5 mg/dL (0.8-1.5) 05/20/19 07:04 Estimated GFR 46 ml/min 05/20/19 07:04 9 % 05/20/19 07:04 Glucose 202 mg/dL (75-100) H 05/20/19 14:51 POC Glucose 167 (70-105) H 05/21/19 07:31 6.9 % (4-6) H 05/21/19 05:45 Calcium 10.0 mg/dL (8.4-10.2) 05/20/19 07:04 Magnesium 1.70 mg/dL (1.7-2.3) 05/20/19 07:14 20.0 umol/L (25-60) L 05/20/19 07:14 33 units/L (55-170) L 05/20/19 07:14 < 0.010 ng/mL (0.00-0.029) 05/20/19 07:04 Triglycerides 127 mg/dL (2-149) 05/21/19 05:45 Cholesterol 60 mg/dL (50-199) 05/21/19 05:45 19 mg/dL (50-130) L 05/21/19 05:45 33 mg/dL (40-59) L 05/21/19 05:45 1.81 % 05/21/19 05:45 TSH 1.530 mlU/mL (0.270-4.200) 05/20/19 07:14 Yellow (Yellow) 05/20/19 15:00 Clear (Clear) 05/20/19 15:00 5.0 (5.0-7.0) 05/20/19 15:00 Ur Specific [place] 1.012 (1.003-1.030) 05/20/19 15:00 30 mg/dl mg/dL (Negative) 05/20/19 15:00 Neg mg/dL (Negative) 05/20/19 15:00 Neg mg/dL (Negative) 05/20/19 15:00 Sm (Negative) 05/20/19 15:00 Neg (Negative) 05/20/19 15:00 Neg (Negative) 05/20/19 15:00 < 2.0 mg/dL (<2.0) 05/20/19 15:00 Ur Leukocyte Esterase Neg (Negative) 05/20/19 15:00 1.0 /HPF (0.0-6.0) 05/20/19 15:00 4.0 /HPF (0.0-6.0) 05/20/19 15:00 U Epithel Cells (Auto) < 1.0 /HPF (0-13.0) 05/20/19 15:00 Few /HPF 05/20/19 15:00 Salicylates 1.2 mg/dL (2.8-20.0) L 05/20/19 07:14 Acetaminophen < 5.0 ug/mL (10.0-30.0) L 05/20/19 07:14 Plasma/Serum Alcohol < 0.01 % (0-0.07) 05/20/19 07:14 Active Medications - Current Medications Current Medications: Generic Name Dose Route Start Last Admin Trade Name Freq PRN Reason Stop Dose Admin Acetaminophen 650 mg 05/20/19 13:12 Tylenol PO Q4H PRN Pain, Mild (1-3) Aspirin 325 mg 05/21/19 10:00 05/21/19 10:48 Aspirin PO Not Given QDAY BENJY Atorvastatin Calcium 80 mg 05/20/19 22:00 05/20/19 21:57 Lipitor PO 80 mg QHS BENJY Administration Clopidogrel Bisulfate 75 mg 05/20/19 14:00 05/21/19 10:48 Plavix PO Not Given DAILY BENJY Dextrose 50 ml 05/20/19 13:16 05/20/19 19:25 D50w (25gm) Syringe IV 50 ml PRN PRN Administration Hypoglycemia Dextrose 50 ml 05/20/19 13:49 D50w (25gm) Syringe IV PRN PRN Hypoglycemia Famotidine 10 mg 05/20/19 22:00 05/21/19 10:48 Pepcid PO Not Given BID BENJY Dextrose/Sodium Chloride 1,000 mls @ 100 mls/hr 05/20/19 09:00 05/21/19 03:43 D5/0.45ns IV 100 mls/hr DIRECT BENJY Administration Insulin Human Lispro 0 unit 05/20/19 16:30 05/21/19 11:00 Humalog SUB-Q Not Given ACHS [facility] Protocol Metoprolol Tartrate 25 mg 05/20/19 22:00 05/21/19 10:48 Lopressor PO Not Given BID [facility] Nicotine 21 mg 05/21/19 16:00 Habitrol TD QDAY [facility] Ondansetron HCl 4 mg 05/20/19 13:12 Zofran IV Q8H PRN Nausea And Vomiting Sodium Chloride 10 ml 05/20/19 13:12 Sodium Chloride Flush Syringe 10 Ml IV PRN PRN LINE FLUSH
--- NOTE | 2019-05-21 15:55 | Consultation ---
History of Present Illness - Reason for Consult Consult date: 05/21/19 carotid stenosis - History of Present Illness Patient with a history of TIA and a past history illnesses with the stroke ev olving the right predominantly MCA territory. His undergone evaluation with carotid ultrasound and MRA/MRV which demonstrate greater than 75% stenosis at the right carotid bulb. The patient has previously undergone a left carotid endarterectomy. Patient has an extensive cardiac history and multiple bypasses. He continues to smoke. He has returned to his baseline functional status. Past History Past Medical History: diabetes, PVD, other (prior IA 2) Past Surgical History: CABG, TURP Social history: Lives alone, smoking Family history: no significant family history Medications and Allergies Allergies Allergy/AdvReac Type Severity Reaction Status Date / Time KAYLIE Inhibitors AdvReac Unknown Verified 03/29/16 19:28 Home Medications Medication Instructions Recorded Confirmed Last Taken Type Aspirin [Aspirin TAB] 325 mg PO QDAY 03/29/16 05/20/19 Unknown History Clopidogrel Bisulfate [Plavix] 75 mg PO DAILY 03/29/16 05/20/19 Unknown History Metoprolol [Lopressor] 25 mg PO BID 03/29/16 05/20/19 Unknown History Rosuvastatin (Nf) [Crestor] 0 mg PO QHS 03/29/16 05/20/19 Unknown History glipiZIDE [Glucotrol] 10 mg PO BID 03/29/16 05/20/19 Unknown History metFORMIN [Glucophage] 1,000 mg PO BID 03/29/16 05/20/19 Unknown History Active Meds: Active Medications Acetaminophen (Tylenol) 650 mg PO Q4H PRN PRN Reason: Pain, Mild (1-3) Aspirin (Aspirin) 325 mg PO QDAY [facility] Last Admin: 05/21/19 10:48 Dose: Not Given Documented by: Atorvastatin Calcium (Lipitor) 80 mg PO QHS [facility] Last Admin: 05/20/19 21:57 Dose: 80 mg Documented by: Clopidogrel Bisulfate (Plavix) 75 mg PO DAILY [facility] Last Admin: 05/21/19 10:48 Dose: Not Given Documented by: Dextrose (D50w (25gm) Syringe) 50 ml IV PRN PRN PRN Reason: Hypoglycemia Last Admin: 05/20/19 19:25 Dose: 50 ml Documented by: Dextrose (D50w (25gm) Syringe) 50 ml IV PRN PRN PRN Reason: Hypoglycemia Famotidine (Pepcid) 10 mg PO BID [facility] Last Admin: 05/21/19 10:48 Dose: Not Given Documented by: Insulin Human Lispro (Humalog) 0 unit SUB-Q ACHS [facility]; Protocol Last Admin: 05/21/19 11:00 Dose: Not Given Documented by: Metoprolol Tartrate (Lopressor) 25 mg PO BID [facility] Last Admin: 05/21/19 10:48 Dose: Not Given Documented by: Nicotine (Habitrol) 21 mg TD QDAY [facility] Ondansetron HCl (Zofran) 4 mg IV Q8H PRN PRN Reason: Nausea And Vomiting Sodium Chloride (Sodium Chloride Flush Syringe 10 Ml) 10 ml IV PRN PRN PRN Reason: LINE FLUSH Review of Systems All systems: negative Exam - Constitutional Vitals: Temp Pulse Resp BP Pulse Ox 97.4 F L 70 18 131/96 98 05/21/19 13:20 05/21/19 13:20 05/21/19 13:20 05/21/19 13:20 05/21/19 13:20 General appearance: Present: no acute distress - EENT Eyes: Present: EOM intact ENT: hearing intact - Neck Neck: Present: supple, normal ROM - Respiratory Respiratory effort: normal - Abdominal General gastrointestinal: Present: deferred Male genitourinary: Present: deferred - Rectal Rectal Exam: deferred - Psychiatric Psychiatric: appropriate mood/affect, cooperative Results - Labs CBC & Chem 7: 05/20/19 07:04 05/20/19 14:51 Labs: Abnormal lab results 05/20/19 05/20/19 05/21/19 Range/Units 19:07 21:40 00:29 POC Glucose 47 L 264 H 310 H (70-105) Hemoglobin A1c (4-6) % LDL Cholesterol Direct (50-130) mg/dL HDL Cholesterol (40-59) mg/dL 05/21/19 05/21/19 05/21/19 Range/Units 05:45 05:45 07:31 POC Glucose 167 H (70-105) Hemoglobin A1c 6.9 H (4-6) % LDL Cholesterol Direct 19 L (50-130) mg/dL HDL Cholesterol 33 L (40-59) mg/dL - Imaging and Cardiology MRI - head: report reviewed, image reviewed Venous US: report reviewed (carotid ultrasound), image reviewed Assessment and Plan Patient with hemodynamically significant stenosis on the right. He has previously undergone carotid endarterectomy on the left. He will need to be scheduled for carotid endarterectomy following discharge on the right. We will obtain a CTA of his neck for presurgical planning. Patient will also need cardiac clearance. He states that his outpatient cardiology is Dr. Rasmussen.
[2019-05-21] MEDS ORDERED: HABITROL TD SCH (17:00)
[2019-05-22 02:04] VITALS: BP 155/52
[2019-05-22 05:36] LABS: Hematocrit 39.5 % (35.5-45.6); Mean Corpuscular HGB Conc 33 % (32-34); Mean Corpuscular Volume 88 fl (84-94); Platelet Count 176 K/mm3 (140-440); Red Blood Count 4.48 M/mm3 (3.65-5.03); Red Cell Distribution Width 14.9 % (13.2-15.2)
[2019-05-22 05:56] LABS: Calcium 9.6 mg/dL (8.4-10.2)
--- NOTE | 2019-05-22 10:00 | Event Note ---
Date: 05/22/19 Patient left AMA around 5am. He refused to stay for any instructions and left prior to be seen
--- NOTE | 2019-05-22 11:08 | Discharge Summary ---
Providers - Providers Date of Admission: 05/20/19 08:32 Attending physician: CATARINA CUMMINGS 05/20/19 07:11 Consult to Physician [CONS] Urgent Comment: called consult/ eugenio Consulting Provider: YUNG PACHECO Physician Instructions: Reason For Exam: ams 05/20/19 13:12 Consult to Case Management [CONS] Routine Services Needed at Discharge: [employer] Notified:: [facility] Occupational Therapy Evaluate and Treat [CONS] Routine Comment: Reason For Exam: Neuro deficits Physical Therapy Evaluation and Treat [CONS] Routine Comment: Reason For Exam: Neuro deficits 05/20/19 13:13 Speech Therapy Evaluation and Treat [CONS] Routine Reason For Exam: swallow eval 05/21/19 15:14 Consult to Physician [CONS] Routine Comment: Consulting Provider: JOVAN GUERIN Physician Instructions: Reason For Exam: Carotid Stenosis, TIA [facility] Hospital[facility] Condition: Undetermined Hospital course: Patient is a 78 yo man with a history of tobacco dependency, BPH s/p surgery, CVA with right sided deficits, NIDDM type 2, cataracts, CAD s/p CABG, s/p Cardiac stents x 2, dyslipidemia and hypertension who presented to [facility] ED with AMS, confusion, slurred speech and stumbling gait that started this morning around 6am, observed by son, Bigg (whom he lives with). He was last known to be well at 8pm the previous night. Patient was found to blood glucose of 38 on basic metabolic panel. His speech is improving. He did have a mild intermittent frontal headache. He takes metformin and glipizide twice daily. He ate lasagne late night then took his diabetic medications. This morning he took his metformin and glipizide without eating right away as he typically does. Son states that patient's symptoms started prior to taking the glipizide. * MRA neck wo contrast IMPRESSION: 1. No acute infarct. Stable chronic infarct in the right MCA territory. 2. Approximately 60% stenosis of the proximal right cervical ICA. 3. Mild nonflow-limiting stenosis of the left cervical ICA. 4. Complete occlusion of the right MCA M1 segment intracranially. No additional flow-limiting stenosis or large vessel occlusion intracranially. * MRA/MRI brain wo contrast IMPRESSION: 1. No acute infarct. Stable chronic infarct in the right MCA territory. 2. Approximately 60% stenosis of the proximal right cervical ICA. 3. Mild nonflow-limiting stenosis of the left cervical ICA. 4. Complete occlusion of the right MCA M1 segment intracranially. No additional flow-limiting stenosis or large vessel occlusion intracranially. * Carotid Ultrasound Doppler Bilateral IMPRESSION: Greater than 75% stenosis in the right carotid bulb by NASCET criteria. 50-79% stenosis in the proximal right ICA by NASCET criteria. No hemodynamically significant stenosis on the left side. AMS due to Acute metabolic encephalopathy from hypoglycemia, ruled out CVA: get mri, lipid, carotid, echo, treat with asa/statin TIA with Right Internal Carotid Stenosis: consulted Vascular surgery, treat with antiplt and statin Acute hypoglycemia: treat with dextrose, stop glipizide Type 2 DM with complication for hypoglycemia: check a1c=>6.9, continue ADA, ssi Tobacco dependency: herb counselor on stopping, add nicotine patch Dyslipidemia: continue statin CAD s/p stent h/o: continue plavix Hypertension; continue lopressor and low salt diet DVT prophylaxis: sq heparin Disposition: inpatient care, consult Vascular surgery and ECHO pending patient left this morning around 5am without waiting to be seen or instruction given. It looks like Vascular surgery wanted CTA neck and Cardiology to evaluate Operative risk for outpatient right CEA. Patient left without scripts Disposition: DC-30 STILL A PATIENT Core Measure Documentation - Palliative Care Palliative Care/ Comfort Measures: Not Applicable - Core Measures Any of the following diagnoses?: none - VTE Discharge Requirements Deep Vein Thrombosis/Pulmonary Embolism Present on Admission: No Has pt received <5 days of overlap therapy or INR<2.0: No Anticoagulant overlap therapy prescribed at discharge: No Contraindication No Overlap Therapy order at DC: Not Indicated Exam - Constitutional Vitals: Temp Pulse Resp BP Pulse Ox 97.3 F L 62 18 155/52 98 05/22/19 02:02 05/22/19 02:04 05/22/19 02:02 05/22/19 02:02 05/22/19 02:04 Plan Additional Instructions: Left AMA Follow up with: DOMINGA CLEMENTE MD [Primary Care Provider] - 7 Days Prescriptions: Rosuvastatin Calcium [Crestor] 40 mg PO QHS #30 tablet
== END 2019-05-22 05:40 | disposition left against medical advice (07) | DRG 637 ==
LOC: ED 06:42 → 2B-ACE 08:32
PROVIDERS: ADMIT Internal Medicine; ATTEND Internal Medicine
DX: E11.649 Type 2 diabetes mellitus with hypoglycemia without coma (principal); G93.41 Metabolic encephalopathy; G45.9 Transient cerebral ischemic attack, unspecified; E78.5 Hyperlipidemia, unspecified; I25.10 Atherosclerotic heart disease of native coronary artery without angina pectoris; F17.210 Nicotine dependence, cigarettes, uncomplicated; G89.29 Other chronic pain; M25.551 Pain in right hip; N18.3 Chronic kidney disease, stage 3 (moderate); E11.22 Type 2 diabetes mellitus with diabetic chronic kidney disease; I12.9 Hypertensive chronic kidney disease with stage 1 through stage 4 chronic kidney disease, or unspecified chronic kidney disease; E11.36 Type 2 diabetes mellitus with diabetic cataract; R51 Headache; R42 Dizziness and giddiness; Z96.641 Presence of right artificial hip joint; Z53.21 Procedure and treatment not carried out due to patient leaving prior to being seen by health care provider; Z95.5 Presence of coronary angioplasty implant and graft; Z79.84 Long term (current) use of oral hypoglycemic drugs; Z95.1 Presence of aortocoronary bypass graft
CPT/HCPCS: 36415; 70450; 70544; 70547; 70551; 71045; 80048; 80061; 80320; 81001; 82140; 82550; 82947; 82962; 83036; 83735; 84443; 84484; 85025; 85027; 85610; 85670; 85730; 87086; 87116; 93005; 93010; 93306; 93880; 96374; 96375; 99406; G0378; A9270-GY; A9577; G0480; J1200; J1815; J2765